=== PATIENT | female | born 1955 | race African-American/Black ===

== ENCOUNTER 2017-03-14 10:19 | Emergency (ER) | payer OTHER, BC ==
[2017-03-14 10:25] VITALS: BP 124/89; PULSE 86; TEMP 98.6; BMI 33.7
--- NOTE | 2017-03-14 10:33 | PDOC ---
History of Present Illness <Avila Bhakta - Last Filed: 03/14/17 13:09> - General History Source: Patient Exam Limitations: No Limitations - History of Present Illness Initial Comments: 03/14/17 10:51 The patient is a 61 year old female with a significant past medical history of hypertension and diabetes who presents to the ED with complaints of chest tightness for 6 days. The patient reports intermittent mid sternal chest tightness since Wednesday. She describes her chest tightness as a squeezing and heaviness sensation. Patient states her chest tightness is alleviated with coughing and states her symptoms progressively worsened over the weekend. Denies rhinorrhea or sore throat. Denies lower extremity edema. Denies fever or chills. Denies shortness of breath. Denies recent travel <Flex Hancock - Last Filed: 03/14/17 13:42> - General Chief Complaint: Chest Pain Stated Complaint: CHEST PAIN Time Seen by Provider: 03/14/17 10:30 Past History - Past Medical History COPD: No Diabetes: Yes HTN: Yes - Immunization History Immunization Up to Date: Yes - Suicide/Smoking/Psychosocial Hx Smoking Status: No Smoking History: Never smoked Have you smoked in the past 12 months: No Number of Cigarettes Smoked Daily: 0 Information on smoking cessation initiated: No Hx Alcohol Use: No Drug/Substance Use Hx: No Substance Use Type: None <Avila Bhakta - Last Filed: 03/14/17 13:09> <Flex Hancock - Last Filed: 03/14/17 13:42> - Past Medical History Allergies/Adverse Reactions: Allergies Allergy/AdvReac Type Severity Reaction Status Date / Time No Known Allergies Allergy Verified 03/14/17 10:21 Home Medications: Ambulatory Orders Albuterol Sulfate Inhaler - [Ventolin Hfa Inhaler -] 1 puff IH Q4H #1 inhaler Hydrochlorothiazide [Hctz -] 25 mg PO DAILY 03/14/17 Review of Systems - Review of Systems Able to Perform ROS?: Yes Comments:: 03/14/17 10:52 ROS: A complete review of 10 out of 10 review of systems is taken and is negative apart from what is previously mentioned below and in the HPI. <Flex Hancock - Last Filed: 03/14/17 13:42> *Physical Exam - Vital Signs Last Vital Signs Temp Pulse Resp BP Pulse Ox 98.6 F 86 16 124/89 98 03/14/17 10:21 03/14/17 10:21 03/14/17 10:21 03/14/17 10:21 03/14/17 10:21 <Avila Bhakta - Last Filed: 03/14/17 13:09> - Vital Signs Last Vital Signs Temp Pulse Resp BP Pulse Ox 98.6 F 86 16 124/89 98 03/14/17 10:21 03/14/17 10:21 03/14/17 10:21 03/14/17 10:21 03/14/17 10:21 - Physical Exam Comments: 03/14/17 10:52 Vitals: Triage Vital signs reviewed General Appearance: no acute distress, well nourished well developed Head: Atraumatic Eyes: Pupils equal reactive round, extraocular movement intact Ears: TM's normal bilaterally Nose: Nares patent bilaterally; no nasal congestion Throat: Posterior oropharynx without erythema, mucous membranes moist Neck: Supple; No Nucal rigidity Chest Wall: Nontender Cardiac: Regular rate and rhythm, no murmurs, no rubs, no gallops Lungs: Clear to auscultation bilateral, good air movement bilaterally Abdomen: Soft, nondistended, normal bowel sounds, nontender to palpation Extremities: Full range of motion to all extremities, no cyanosis, clubbing, or edema Skin: Warm and dry, no rashes or lesions, no rash, no petechiae Neuro: AOX3; Cranial Nerves 2-12 grossly intact, Strength intact to all extremities, Sensation intact to all extremities, gait normal Psych: Normal mood, normal affect <Flex Hancock - Last Filed: 03/14/17 13:42> Heart Score/ECG Review #1 03/14/17 11:07 EKG performed at 10:27 demonstrates rate of 74 bpm, rhythm of sinus, axis equal to normal. no T wave inversions, no ST elevations.Additional findings include: Comparison of prior EKG: from 10/23/06 Demonstrates: change interval development of incomplete right bundle branch block in V2 <Flex Hancock - Last Filed: 03/14/17 13:42> ED Treatment Course - LABORATORY CBC & Chemistry Diagram: 03/14/17 10:57 03/14/17 10:57 <Avila Bhakta - Last Filed: 03/14/17 13:09> - LABORATORY CBC & Chemistry Diagram: 03/14/17 10:57 03/14/17 10:57 - RADIOLOGY Radiograph Interpretation: 03/14/17 11:40 RAD/CHEST X-RAY PORTABLE Impression: Weak inspiration with resultant prominent heart and no sign of an acute chest process. Reported by: Srini Solis <Flex Hancock - Last Filed: 03/14/17 13:42> Medical Decision Making - Medical Decision Making 03/14/17 13:11 61 years old presents to the emergency department with chest pain since Wednesday described as a tightness improves with coughing. No exertional component no dizziness no radiation no nausea no vomiting Nonischemic EKG. First troponin negative. Heart score 3. Patient feels much better after DuoNeb's no acute findings on chest x-ray History and examination most consistent with upper respiratory infection We'll treat with Ventolin nebulizer at home she will follow-up with her doctor tomorrow she'll return to the emergency department for any chest pain or for any concerns. <Avila Bhakta - Last Filed: 03/14/17 13:09> - Medical Decision Making 03/14/17 11:29 The patient is a 61 year old female with a significant past medical history of hypertension and diabetes who presents to the ED with complaints of chest tightness for 6 days. Will order comprehensive metabolic panel, troponin, Chest x-ray and EKG. 03/14/17 13:41 Patient well-appearing no apparent distress feels better. Nonischemic EKG, first troponin negative, normal Chest x_ray. the need for followup and strict return instructions discussed with patient. <Flex Hancock - Last Filed: 03/14/17 13:42> *DC/Admit/Observation/Transfer - Discharge Dispostion Admit: No <Avila Bhakta - Last Filed: 03/14/17 13:09> - Attestations Scribe Attestion: 03/14/17 10:52 Documentation prepared by Flex Hancock, acting as medical engineer for Avila Bhakta MD <Flex Hancock - Last Filed: 03/14/17 13:42> Diagnosis at time of Disposition: Cough - Discharge Dispostion Disposition: HOME - Prescriptions Prescriptions: Albuterol Sulfate Inhaler - [Ventolin Hfa Inhaler -] 1 puff IH Q4H #1 inhaler - Referrals Referrals: Rachelle Cherry MD [Primary Care Provider] - - Patient Instructions Printed Discharge Instructions: DI for Atypical Chest Pain Additional Instructions: Ventolin nebulizer as prescribed. Follow-up with her doctor on Wednesday. Return to the emergency department for any severe worsening symptoms any worsening chest pain or for any concerns.
[2017-03-14 11:05] LABS: BASOPHIL 0.7 % (0-2.0); EOSINOPHIL 2.7 % (0-4.5); MCH 30.4 pg (25.7-33.7); MCHC 33.5 g/dl (32.0-36.0); MEAN CELL VOLUME 90.8 fl (80-96); MEAN PLT VOLUME 7.9 fl (7.5-11.1); PLATELET COUNT 262 K/MM3 (134-434); WHITE BLOOD COUNT 4.6 K/mm3 (4.0-10.0)
[2017-03-14 11:36] LABS: ALBUMIN 3.8 g/dl (3.4-5.0); ANION GAP 7 (8-16); BILIRUBIN,TOTAL 0.3 mg/dL (0.2-1.0); CALCIUM 8.7 mg/dL (8.5-10.1); CO2 26 mmol/L (21-32); CREATININE 0.7 mg/dL (0.55-1.02); GLUCOSE,RANDOM 92 mg/dL (74-106); SGPT/ALT 35 U/L (12-78); TOT PROT 7.9 g/dl (6.4-8.2)
[2017-03-14 11:39] LABS: ALK PHOS 76 U/L (45-117); TROPONIN I < 0.02 ng/ml (0.00-0.05)
[2017-03-14 11:43] LABS: SGOT/AST 26 U/L (15-37)
[2017-03-14] MEDS ORDERED: ALBUTEROL SO4 2.5/IPRATROPIUM 0.5 INH SOL 3 ML VIAL.NEB. NEB ONE ×4 (11:46→13:21)
--- NOTE | 2017-03-15 14:18 | EKG ---
Test Reason : Blood Pressure : / mmHG Vent. Rate : 074 BPM Atrial Rate : 074 BPM P-R Int : 156 ms QRS Dur : 086 ms QT Int : 376 ms P-R-T Axes : 054 015 009 degrees QTc Int : 417 ms NORMAL SINUS RHYTHM WITH SINUS ARRHYTHMIA VOLTAGE CRITERIA FOR LEFT VENTRICULAR HYPERTROPHY CANNOT RULE OUT SEPTAL INFARCT , AGE UNDETERMINED ABNORMAL ECG WHEN COMPARED WITH ECG OF 25-SEP-2006 14:19, MINIMAL CRITERIA FOR SEPTAL INFARCT ARE NOW PRESENT Confirmed by SEJAL GAEMZ MD ([id number]) on 03/15/2017 2:18:00 PM Referred By: Confirmed By:SEJAL GAMEZ MD
== END 2017-03-14 13:30 | disposition home or self-care (01) ==
LOC: JER 10:19
PROC: 3E0F7GC Introduction of Other Therapeutic Substance into Respiratory Tract, Via Natural or Artificial Opening (ICD-10-PCS; principal; 2017-03-14)
DX: R05 Cough (principal); I10 Essential (primary) hypertension; E11.9 Type 2 diabetes mellitus without complications
CPT/HCPCS: 36415; 71010-TC; 80053; 84484; 85025; 93005; 93010; 99283-25

== ENCOUNTER 2020-02-19 14:59 | Emergency (ER) | payer BC, OTHER ==
[2020-02-19 15:15] VITALS: TEMP 98.2; BMI 32.9
--- NOTE | 2020-02-19 15:19 | PDOC ---
Rapid Medical Evaluation Time Seen by Provider: 02/19/20 15:14 Medical Evaluation: Allergies Allergy/AdvReac Type Severity Reaction Status Date / Time No Known Allergies Allergy Verified 02/19/20 15:08 Vital Signs Temp Pulse Resp BP Pulse Ox 98.2 F 101 H 16 163/104 H 100 02/19/20 15:08 02/19/20 15:08 02/19/20 15:08 02/19/20 15:08 02/19/20 15:08 02/19/20 15:16 CC: elevated BP in urgent care today, dizziness since yesterday and now with left sided left stiffness Exam: bp slighlty elevated, no JVD, no reproducible pain Plan: cardiac w/u caratoid duplex Discharge Disposition - Diagnosis Dizziness - Referrals - Patient Instructions - Post Discharge Activity
--- OUTSIDE RECORDS SUMMARY | 2020-02-19 15:29 | XMS ---
:1955 Author Organization [facility] Support Name Relationship Address Phone YOBE Unavailable [address] [place] [address] [facility] Unavailable [address] [phone] [place] [address] NICOLLE BROWN [address] [facility] [place] [id number] Re-disclosure Warning The records that you are about to access may contain information from federally- assisted alcohol or drug abuse programs. If such information is present, then the following federally mandated warning applies: This information has been disclosed to you from records protected by federal confidentiality rules (42 CFR part 2). The federal rules prohibit you from making any further disclosure of this information unless further disclosure is expressly permitted by the written consent of the person to whom it pertains or as otherwise permitted by 42 CFR part 2. A general authorization for the release of medical or other information is NOT sufficient for this purpose. The Federal rules restrict any use of the information to criminally investigate or prosecute any alcohol or drug abuse patient.The records that you are about to access may contain highly sensitive health information, the redisclosure of which is protected by Article 27-F of the [facility] Public Health law. If you continue you may haveaccess to information: Regarding HIV / AIDS; Provided by facilities licensed or operated by the [facility] Office of Mental Health; or Provided by the [facility] Office for People With Developmental Disabilities. If such information is present, then the following [facility] mandated warning applies: This information has been disclosed to you from confidential records which are protected by state law. State law prohibits you from making any further disclosure of this information without the specific written consent of the person to whom it pertains, or as otherwise permitted by law. Any unauthorized further disclosure in violation of state law may result in a fine or usp sentence or both. A general authorization for the release of medical or other information is NOT sufficient authorization for further disclosure. Insurance Providers Payer Policy type Policy ID Covered Covered libertarian's Policy Pl an name / Coverage libertarian ID relationship to [place] Inf ormation type horn PPO [id number] SP [id number] [facility] [id number] OUTPT PPO [id number] [facility] [id number] OUTPT PPO [id number] Results ID Date Data Source [id number] 12/06/2019 04:30:00 PM EDT [facility] Name Value Range Interpretation Code Description Data Ashley rce(s) Supporting Document(s ) SARS-COV-2 [facility] QL YI+PROBE This lab was ordered by [facility] and reported by [facility]. Procedure
--- NOTE | 2020-02-19 16:04 | PDOC ---
History of Present Illness - General Chief Complaint: Blood Pressure Problem Stated Complaint: SENT BY PCP/HYPERTENSION Time Seen by Provider: 02/19/20 15:14 - History of Present Illness Initial Comments: 64yo F with PMHx of HTN and previous episodes of vertigo who presents with vertigo and high BP. Symptoms started yesterday evening, so she went to sleep and slept well overnight. In the morning, her symptoms were mildly improved but she continued experiencing vertigo. 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 Once she saw her systolics in the 160s, she decided to go to urgent care. At the urgent care, she had to stand outside for 45 minutes until she got in, and once she was in they told her she needs to come to the ED. At baseline her BPs run 120s/80s, she takes HCTZ 25 daily but does not take it every day as her BP is well controlled. She has been told that she is pre-diabetic. Past History - Medical History Allergies/Adverse Reactions: Allergies Allergy/AdvReac Type Severity Reaction Status Date / Time No Known Allergies Allergy Verified 02/19/20 15:08 Home Medications: Ambulatory Orders Albuterol Sulfate Inhaler - [Ventolin Hfa Inhaler -] 1 puff IH Q4H #1 inhaler 03/14/17 Hydrochlorothiazide [Hctz -] 25 mg PO DAILY 03/14/17 Meclizine HCl [Dramamine Less Drowsy] 25 mg PO TID PRN 14 Days #42 tablet 02/19/20 COPD: No Diabetes: Yes HTN: Yes - Immunization History Immunization Up to Date: Yes - Psycho-Social/Smoking History Smoking Status: No Smoking History: Never smoked Have you smoked in the past 12 months: No Number of Cigarettes Smoked Daily: 0 - Substance Abuse Hx (Audit-C & DAST Scrn) How often the patient has a drink containing alcohol: Never Score: In Men: 4 or > Positive; In Women: 3 or > Positive: 0 Screen Result (Pos requires Nsg. Audit-10AR): Negative In the last yr the pt used illegal drug/Rx for NonMed reason: No Score: Yes response is considered Positive: 0 Screen Result (Positive result requires Nsg. DAST-10): Negative Review of Systems - Review of Systems Comments:: Constitutional: denied fevers, chills, diaphoresis, changes in appetite/PO intake, weight gain/loss HEENTM: denied headaches, changes in vision/hearing/tasting/smelling, runny nose, sore throat, endorsed vertigo Respiratory: denied SOB, CP, dry/productive cough, congestion Cardiac: denied palpitations, dizziness, syncope, irregular heartbeat, chest tightness Abdomen/GI: denied pain, NVDC : denied dysuria, urinary frequency/urgency MSK: denied back pain, joint pain/swelling/stiffness Integumentary: denied bruising, dryness, pruritis, rash Neurological: denied numbness, tingling, dizziness, weakness, seizures Psychiatric: denied anxiety, depression, mood changes *Physical Exam - Vital Signs Last Vital Signs Temp Pulse Resp BP Pulse Ox 98.2 F 101 H 16 163/104 H 100 02/19/20 15:08 02/19/20 15:08 02/19/20 15:08 02/19/20 15:08 02/19/20 15:08 - Physical Exam GENERAL: AAF, appears stated age, average body habitus, AAOx4 showing no signs of acute distress, well kept HEAD: Normal with no signs of trauma, good dentition EYES: PERRL, direct and consensual pupillary reflexes intact bilaterally, extraocular movements intact bilaterally EARS, NOSE, THROAT: Moist mucous membranes. NECK: No lymphadenopathy or masses noted LUNGS: CTAB. No wheezes, and no crackles. No accessory muscle use. HEART: RRR, normal S1 and S2 without murmur ABDOMEN: Soft, nontender, not protuberant, normoactive bowel sounds EXTREMITIES: 2+ radial and dorsalis pedis pulses, warm to touch bilaterally, nontender to palpation, no peripheral edema appreciated, no active lesions or ulcers noted on feet bilaterally including interdigital web spaces NEUROLOGICAL: Cranial nerves II-XII grossly intact. Normal speech with symmetricalfacial movements. Sensation intact bilaterally. Normal gait. PSYCHIATRIC: Cooperative and interactive, responds appropriately. Good eye contact. Appropriate/good mood and affect SKIN: Warm, no rashes or lesions noted ED Treatment Course - LABORATORY CBC & Chemistry Diagram: 02/19/20 16:00 02/19/20 15:46 Medical Decision Making - Medical Decision Making 64yo F with PMHx of HTN and previous episodes of vertigo who presents with vert igo and high BP. - CBC - CMP - trop - Mg - PT INR - CXR - EKG - carotid doppler - head CT - meclizine > patient symptoms improved with meclizine > head CT and other workup was unremarkable > patient stable to go home on meclizine and will be referred to neurology (had these symptoms in the past) Discharge - Discharge Information Problems reviewed: Yes Clinical Impression/Diagnosis: Dizziness Condition: Stable - Admission No - Additional Discharge Information Prescriptions: Meclizine HCl [Dramamine Less Drowsy] 25 mg PO TID PRN 14 Days #42 tablet PRN Reason: Vertigo - Follow up/Referral Referrals: Liam Malone MD [Staff Physician] - Josh Otto MD [Staff Physician] - Adelso Araujo MD [Staff Physician] - - Patient Discharge Instructions Patient Printed Discharge Instructions: DI for High Blood Pressure, How to Monitor Your Blood Pressure at Home Additional Instructions: You came to the emergency department due to your symptoms of vertigo and high blood pressures. We ran some labs and did some imaging including a head CT, which all was unremarkable. You are now stable to go home. We will send you with a medication called meclizine, you can take it three times per day as needed (so you do not need to take it if you are not experiencing any symptoms). Also, we referred you to some neurologist Dr. Araujo, Dr. Otto, and Dr. Malone - please make sure to see one of these neurologists within the next 72 hours. Also, if you start experiencing worsening symptoms such as worsening vertigo, nausea, vomiting, chest pain, shortness of breath, or any other concerning symptoms, please call 911 or refer to the nearest emergency department for immediate medical attention. It was a pleasure taking care of you. Print Language: SERBIAN - Post Discharge Activity
[2020-02-19 16:25] LABS: BASO % 0.5 % (0-2.0); EOS % 1.3 % (0-4.5); HEMATOCRIT 43.2 % (32.4-45.2); HEMOGLOBIN 14.3 GM/dL (10.7-15.3); MCH 30.8 pg (25.7-33.7); MEAN CELL VOLUME 93.2 fl (80-96); MEAN PLT VOLUME 8.3 fl (7.5-11.1); MONO % 7.8 % (3.8-10.2); NEUT % 46.4 % (42.8-82.8); PLATELET COUNT 267 K/MM3 (134-434); RBC 4.64 M/mm3 (3.60-5.2); RDW 13.4 % (11.6-15.6); WHITE BLOOD COUNT 6.1 K/mm3 (4.0-10.0)
[2020-02-19 16:28] LABS: INR 1.08 (0.83-1.09)
[2020-02-19] MEDS ORDERED: MECLIZINE HCL 25 MG TABLET (FP) PO ONE (16:36)
[2020-02-19 16:40] LABS: CHLORIDE 105 mmol/L (98-107); POTASSIUM 3.6 mmol/L (3.5-5.1); SODIUM 139 mmol/L (136-145)
[2020-02-19 16:42] LABS: ALBUMIN 4.1 g/dl (3.4-5.0); CALCIUM 9.9 mg/dL (8.5-10.1)
[2020-02-19 16:44] LABS: ANION GAP 8 MMOL/L (8-16); BLOOD UREA NITROGEN 15.9 mg/dL (7-18); CO2 26 mmol/L (21-32); GLUCOSE,RANDOM 80 mg/dL (74-106); MAGNESIUM 2.1 mg/dL (1.8-2.4)
[2020-02-19 16:46] LABS: CREATININE 0.7 mg/dL (0.55-1.3); SGOT/AST 26 U/L (15-37); SGPT/ALT 38 U/L (13-61)
[2020-02-19 16:47] LABS: BILIRUBIN,TOTAL 0.4 mg/dL (0.2-1); TOT PROT 8.1 g/dl (6.4-8.2)
[2020-02-19 16:49] LABS: ALK PHOS 89 U/L (45-117)
[2020-02-19] MEDS ORDERED: MECLIZINE HCL 25 MG TABLET (FP) ONE (17:50)
--- NOTE | 2020-02-19 18:40 | PDOC ---
Documentation entered by Cheryl Luevano SCRIBE, acting as scribe for Haley Broderick MD. Haley Broderick MD: This documentation has been prepared by the prabhaibe, Cheryl Luevano SCRIBE, under my direction and personally reviewed by me in its entirety. I confirm that the documentation accurately reflects all work, treatment, procedures, and medical decision making performed by me. Attending Attestation - Resident Resident Name: Bertha Aguilar - ED Attending Attestation I have performed the following: I have examined & evaluated the patient, The case was reviewed & discussed with the resident, I agree w/resident's findings & plan, Exceptions are as noted - HPI HPI: 02/19/20 18:03 Patient is a 64 year old female with a significant past medical history of vertigo who presents to the ED with positional dizziness Patient denies:chest pain,fever,chills,shortness f breath, confusion,facial droop or extremity weakness Allergies: NKDA 02/19/20 18:38 - Physicial Exam PE: 02/19/20 18:40 wnwd 64 yo female had positional dizziness since waking up in the morning. head ncat eyes autumn eomi lungs cta b/l cvs [id number] abdomen nontender extremities no erythema, no edema,motor strength 5/5 b/l skin warm and dry neuro axox3,motor strength 5/5 b/l, no drift,no ataxia ,no slurred speech 02/19/20 18:44 - Medical Decision Making 02/19/20 18:47 ct scan head no acute intracranial pathology 02/19/20 18:51 carotid US no critical stenosis evident labs reviewed her symptoms resolved with meclizine imp vertigo plan RX meclizine,neuro referral and d/s home Discharge - Discharge Information Problems reviewed: Yes Clinical Impression/Diagnosis: Dizziness Condition: Stable - Additional Discharge Information Prescriptions: Meclizine HCl [Dramamine Less Drowsy] 25 mg PO TID PRN 14 Days #42 tablet PRN Reason: Vertigo - Follow up/Referral Referrals: Josh Otto MD [Staff Physician] - Adelso Araujo MD [Staff Physician] - Liam Malone MD [Staff Physician] - - Patient Discharge Instructions Patient Printed Discharge Instructions: DI for High Blood Pressure, How to Monitor Your Blood Pressure at Home Additional Instructions: You came to the emergency department due to your symptoms of vertigo and high blood pressures. We ran some labs and did some imaging including a head CT, which all was unremarkable. You are now stable to go home. We will send you with a medication called meclizine, you can take it three times per day as needed (so you do not need to take it if you are not experiencing any symptoms). Also, we referred you to some neurologist Dr. Araujo, Dr. Otto, and Dr. Malone - please make sure to see one of these neurologists within the next 72 hours. Also, if you start experiencing worsening symptoms such as worsening vertigo, nausea, vomiting, chest pain, shortness of breath, or any other concerning symptoms, please call 911 or refer to the nearest emergency department for immediate medical attention. It was a pleasure taking care of you. Print Language: SLOVENIAN - Post Discharge Activity
[2020-02-19 20:17] VITALS: BP 116/81; PULSE 76
--- NOTE | 2020-02-20 10:36 | EKG ---
Test Reason : Blood Pressure : / mmHG Vent. Rate : 081 BPM Atrial Rate : 081 BPM P-R Int : 154 ms QRS Dur : 094 ms QT Int : 376 ms P-R-T Axes : 057 000 038 degrees QTc Int : 436 ms SINUS RHYTHM WITH MARKED SINUS ARRHYTHMIA WITH OCCASIONAL PREMATURE VENTRICULAR COMPLEXES POSSIBLE LEFT ATRIAL ENLARGEMENT LEFT VENTRICULAR HYPERTROPHY CANNOT RULE OUT SEPTAL INFARCT (CITED ON OR BEFORE 14-MAR-2017) ABNORMAL ECG WHEN COMPARED WITH ECG OF 14-MAR-2017 10:27, PREMATURE VENTRICULAR COMPLEXES ARE NOW PRESENT QUESTIONABLE CHANGE IN INITIAL FORCES OF SEPTAL LEADS T WAVE INVERSION NO LONGER EVIDENT IN INFERIOR LEADS Confirmed by MD MICHELLE, KIYA ([id number]) on 02/20/2020 10:35:27 AM Referred By: Confirmed By:KIYA MARTINEZ MD
== END 2020-02-19 19:45 ==
LOC: JER 14:59
DX: R42 Dizziness and giddiness (principal)
CPT/HCPCS: 36415; 70450-TC; 71045-TC-FY; 80053; 82550; 82553; 83735; 84484; 85025; 85610; 93005; 93010; 93880-TC; 99285-25

== ENCOUNTER 2021-03-27 05:03 | Day surgery (SDC) | payer BC, OTHER ==
[2021-02-24 11:02] VITALS: BMI 32.3
[2021-03-27 11:57] VITALS: BP 100/50; PULSE 63; TEMP 98
== END 2021-03-27 12:40 | disposition home or self-care (01) ==
LOC: JASU-ENDO 05:03
PROVIDERS: ATTEND Internal Medicine Gastroenterology
PROC: 0DBL8ZX Excision of Transverse Colon, Via Natural or Artificial Opening Endoscopic, Diagnostic (ICD-10-PCS; principal; 2021-03-27 10:00)
DX: Z12.11 Encounter for screening for malignant neoplasm of colon (principal); D12.3 Benign neoplasm of transverse colon; K64.8 Other hemorrhoids; K57.30 Diverticulosis of large intestine without perforation or abscess without bleeding
CPT/HCPCS: 88305-TC